=== PATIENT | female | born 1950 | race Caucasian/White ===

== ENCOUNTER 2024-11-30 14:38 | Inpatient (IN) | payer MEDICARE, OTHER ==
[~2024-11-30] VITALS: Ht 162.6 cm; Wt 83.9 kg
[~2024-11-30 14:38] MED LIST: ALBU0.63 NEB; ALBU18HF2 INH; DULO30CA2 PO; LOSA25TA27 PO; OMEP20TA20 PO; TRAM100T23 PO
[2024-11-30 20:04] LABS: ASPARTATE AMINOTRANSFERASE 13 U/L (15-37); CREATININE 1.0 mg/dL (0.6-1.3); SODIUM SERUM 148 mmol/L (136-145); TOTAL PROTEIN, SERUM 6.3 g/dL (6.4-8.2); UREA NITROGEN, BLOOD 22 mg/dL (7-18)
[2024-11-30 20:08] LABS: ETHANOL < 3 MG/DL (0-10)
[2024-11-30 20:17] LABS: PLATELET COUNT (AUTO) 156 K/uL (179-408); RED BLOOD CELL COUNT(AUTO) 4.10 MIL/uL (3.63-4.92); RED CELL DISTRIBUTION WIDTH 15.2 % (12.3-17.7); WHITE BLOOD COUNT (AUTO) 5.8 K/uL (3.8-11.8)
[2024-11-30 21:00] VITALS: BP 148/84
[2024-11-30 21:46] LABS: *BILIRUBIN,URIN NEGATIVE (NEGATIVE); *BLOOD, URINE NEGATIVE (NEGATIVE); *CLARITY,URINE CLEAR (CLEAR); *COLOR,URINE YELLOW (YELLOW); *KETONES,URINE NEGATIVE (NEGATIVE); *PROTEIN,URINE NEGATIVE (NEGATIVE); *UROBILINOGEN,URINE 0.2 E.U./dl (NORMAL); LEUKOCYTE ESTERASE ,URINE NEGATIVE (NEGATIVE); NITRITE, URINE NEGATIVE (NEGATIVE); UGLUCOSE NEGATIVE (NEGATIVE)
[2024-11-30 21:51] LABS: *AMPHETAMINE, URINE NEGATIVE (NEGATIVE); *BARBITURATE, URINE POSITIVE (NEGATIVE); *BENZODIAZEPINE, URINE NEGATIVE (NEGATIVE); *CANNABINOID, URINE NEGATIVE (NEGATIVE); *COCCAINE, URINE NEGATIVE (NEGATIVE); *OPIATE, URINE NEGATIVE (NEGATIVE); *PHENCYCLIDINE SCREEN,URINE NEGATIVE (NEGATIVE); FENTANYL, URINE NEGATIVE (NEGATIVE)
[2024-11-30] MEDS ORDERED: ACETAMINOPHEN 500 MG TABLET ONE (22:16)
[2024-11-30] MEDS: ACETAMINOPHEN 500 MG TABLET PO ONE (22:20)
[2024-12-01] MEDS ORDERED: TEMAZEPAM 7.5 MG CAPSULE PO PRN (00:15)
[2024-12-01] MEDS ORDERED: MAGNESIUM HYDROXIDE 30 ML LIQUID UDC PO PRN (00:15)
[2024-12-01] MEDS: BLOOD SUGAR DIAGNOSTIC 1 EACH STRIP VI ONE (00:15)
[2024-12-01] MEDS ORDERED: LORAZEPAM 1 MG TABLET PO PRN (00:15)
[2024-12-01] MEDS ORDERED: MAG HYDROX/AL HYDROX/SIMETH 30 ML LIQUID UDC PO PRN (00:15)
[2024-12-01] MEDS: ACETAMINOPHEN 325 MG TABLET PO PRN (00:37)
[2024-12-01] MEDS: TEMAZEPAM 7.5 MG CAPSULE PO PRN (00:37)
[2024-12-01 01:30] VITALS: BP 146/58; TEMP 98.1; O2SAT 96
[2024-12-01] MEDS ORDERED: BUSP5TAB3 PO (05:36)
[2024-12-01] MEDS ORDERED: ASPI81TA31 PO (05:36)
[2024-12-01] MEDS ORDERED: MELA5TAB20 PO (05:36)
[2024-12-01] MEDS ORDERED: TRAM50TA2 PO (05:36)
[2024-12-01] MEDS ORDERED: ALBU6.7H9 INH (05:36)
[2024-12-01] MEDS ORDERED: FAMO40TA7 PO (05:36)
[2024-12-01] MEDS ORDERED: ATOR40TA PO (05:36)
[2024-12-01] MEDS ORDERED: LOSA100T31 PO (05:36)
[2024-12-01] MEDS ORDERED: FURO20TA4 PO (05:36)
[2024-12-01] MEDS ORDERED: GABA-532 PO (05:36)
[2024-12-01] MEDS ORDERED: SERT50TA PO (05:36)
[2024-12-01] MEDS: PANTOPRAZOLE SODIUM 40 MG TABLET.DR PO SCH (07:10)
[2024-12-01 08:17] LABS: CREATININE 0.7 mg/dL (0.6-1.3); GLUCOSE FASTING 112 mg/dL (70-115); SODIUM SERUM 143 mmol/L (136-145); UREA NITROGEN, BLOOD 20 mg/dL (7-18)
[2024-12-01 08:20] LABS: PLATELET COUNT (AUTO) 141 K/uL (179-408); RED BLOOD CELL COUNT(AUTO) 3.79 MIL/uL (3.63-4.92); RED CELL DISTRIBUTION WIDTH 15.3 % (12.3-17.7); WHITE BLOOD COUNT (AUTO) 5.4 K/uL (3.8-11.8)
[2024-12-01] MEDS: LOSARTAN POTASSIUM 50 MG TABLET PO SCH (08:26)
[2024-12-01 08:43] VITALS: BP 139/51; TEMP 98.3; O2SAT 98
[2024-12-01] MEDS ORDERED: LOSARTAN POTASSIUM 25 MG TABLET PO SCH ×2 (09:00)
[2024-12-01] MEDS ORDERED: ALBUTEROL SULFATE 8 GM HFA.AER.AD INH SCH ×3 (09:00→11:45)
[2024-12-01] MEDS ORDERED: DULOXETINE 30 MG CAPSULE.DR PO SCH ×2 (09:00)
[2024-12-01] MEDS ORDERED: FLUT1BLS INH (10:37)
[2024-12-01] MEDS: SERTRALINE HCL 50 MG TABLET PO SCH (13:34)
[2024-12-01 16:20] VITALS: BP 143/65; TEMP 98.3; O2SAT 98
[2024-12-01] MEDS: GABAPENTIN 100 MG CAPSULE PO SCH (17:21)
[2024-12-01] MEDS: FAMOTIDINE 20 MG TABLET PO SCH (17:21)
[2024-12-01] MEDS: TRAMADOL HCL 50 MG TABLET PO PRN (19:02)
[2024-12-01 19:44] VITALS: BP 156/57; TEMP 97.8; O2SAT 96
[2024-12-01] MEDS ORDERED: ZINC OXIDE OINT 30 GM TUBE TOP PRN (20:00)
[2024-12-01] MEDS: MOMETASONE/FORMOTEROL 8.8 GM HFA.AER.AD IH SCH (20:46)
[2024-12-01] MEDS: LORAZEPAM 1 MG TABLET PO PRN (20:47)
[2024-12-01] MEDS: ATORVASTATIN 40 MG TABLET PO SCH (20:47)
[2024-12-02] MEDS ORDERED: LOSARTAN POTASSIUM 50 MG TABLET PO SCH (09:00)
[2024-12-02 09:33] VITALS: BP 135/58; TEMP 98; O2SAT 94
[2024-12-02] MEDS: FUROSEMIDE 20 MG TABLET PO SCH (10:25)
[2024-12-02] MEDS: ASPIRIN 81 MG TAB.CHEW PO SCH (10:26)
[2024-12-02 16:38] VITALS: BP 144/64; TEMP 97.9; O2SAT 98
[2024-12-02 20:00] VITALS: BP 147/71; TEMP 97.5; O2SAT 94
[2024-12-03 07:54] VITALS: BP 140/60; TEMP 98.2; O2SAT 96
[2024-12-03 15:07] VITALS: BP 129/61; TEMP 98; O2SAT 96
[2024-12-03 20:00] VITALS: BP 123/53; TEMP 98.1; O2SAT 96
[2024-12-03] MEDS: REMEDY ESSENTIAL ZINC PASTE 113 GM TP PRN (20:31)
[2024-12-03] MEDS: TEMAZEPAM 15 MG CAPSULE PO PRN (22:49)
[2024-12-04] MEDS: SERTRALINE HCL 100 MG TABLET PO SCH (08:18)
[2024-12-04 09:23] VITALS: BP 133/61; TEMP 98; O2SAT 98
[2024-12-04] MEDS: ENSURE ENLIVE (VAN) 240 ML LIQUID PO SCH (09:28)
[2024-12-04 15:01] VITALS: BP 134/59; TEMP 98; O2SAT 96
[2024-12-04 19:45] VITALS: BP 120/61; TEMP 97.8; O2SAT 94
[2024-12-05 07:38] VITALS: BP 133/66; TEMP 98; O2SAT 94
[2024-12-05 15:41] VITALS: BP 114/51; TEMP 98; O2SAT 96
[2024-12-05 20:00] VITALS: BP 120/60; TEMP 98; O2SAT 99
[2024-12-06] VITALS (7 sets, daily range): BP systolic 118–135; BP diastolic 44–59; TEMP 98; O2SAT 94–99
[2024-12-06] MEDS: ALBUTEROL SULFATE 1.25 MG/3 ML NEBU NEB PRN (07:58)
[2024-12-07 08:49] VITALS: BP 144/77; TEMP 98; O2SAT 99
[2024-12-07] MEDS: PNEUMOCOCCAL 23-VAL P-SAC VAC 0.5 ML VIAL IM ONE (13:08)
[2024-12-07] MEDS: SERTRALINE HCL 100 MG TABLET PO SCH (13:10)
[2024-12-07 16:17] VITALS: BP 118/44; TEMP 98; O2SAT 99
[2024-12-07 20:00] VITALS: BP 109/55; TEMP 98; O2SAT 94
[2024-12-08 08:10] VITALS: BP 128/48; TEMP 98; O2SAT 99
[2024-12-08 16:27] VITALS: BP 130/61; TEMP 98; O2SAT 99
[2024-12-08 19:50] VITALS: O2SAT 94
[2024-12-08 19:58] VITALS: BP 121/50; TEMP 98.1; O2SAT 94
[2024-12-08 20:00] VITALS: O2SAT 98
[2024-12-09 08:24] VITALS: BP 136/69; TEMP 97.8; O2SAT 97
[2024-12-09 17:26] VITALS: BP 115/63; TEMP 98.2; O2SAT 94
[2024-12-09 19:00] VITALS: O2SAT 94
[2024-12-09 19:11] VITALS: O2SAT 98
[2024-12-09 19:15] VITALS: O2SAT 98
[2024-12-09 19:37] VITALS: BP 130/76; TEMP 98.1; O2SAT 95
[2024-12-10] VITALS (11 sets, daily range): BP systolic 99–131; BP diastolic 35–72; TEMP 98.7–99.1; O2SAT 90–99
[2024-12-10] MEDS: FAMOTIDINE 20 MG TABLET PO SCH (17:44)
[2024-12-10] MEDS: IPRATROPIUM BROMIDE 0.5 MG/2.5 ML NEBU NEB PRN (20:47)
[2024-12-10] MEDS: ALBUTEROL SULFATE 2.5 MG/ 0.5 ML NEBU NEB PRN (20:48)
[2024-12-11] VITALS (9 sets, daily range): BP systolic 101–138; BP diastolic 37–61; TEMP 97.7–98.2; O2SAT 92–99
[2024-12-11] MEDS: FUROSEMIDE 20 MG TABLET PO SCH (08:49)
[2024-12-11] MEDS ORDERED: FUROSEMIDE 20 MG TABLET PO SCH (09:00)
[2024-12-11] MEDS ORDERED: FUROSEMIDE 40 MG TABLET PO SCH ×2 (09:00)
[2024-12-11] MEDS: DOXYCYCLINE HYCLATE 100 MG TABLET PO SCH (10:41)
[2024-12-12] VITALS (13 sets, daily range): BP systolic 90–102; BP diastolic 44–50; TEMP 98–98.4; O2SAT 92–100
[2024-12-12] MEDS: SERTRALINE HCL 100 MG TABLET PO SCH (08:32)
[2024-12-13] VITALS (9 sets, daily range): BP systolic 114–119; BP diastolic 55–61; TEMP 97.7–98; O2SAT 90–96
[2024-12-14] VITALS (10 sets, daily range): BP systolic 109–111; BP diastolic 40–44; TEMP 98.1–98.3; O2SAT 90–96
[2024-12-14 16:02] LABS: PLATELET COUNT (AUTO) 188 K/uL (179-408); RED BLOOD CELL COUNT(AUTO) 3.74 MIL/uL (3.63-4.92); RED CELL DISTRIBUTION WIDTH 15.5 % (12.3-17.7); WHITE BLOOD COUNT (AUTO) 4.7 K/uL (3.8-11.8)
[2024-12-14 16:08] LABS: CREATININE 1.0 mg/dL (0.6-1.3); SODIUM SERUM 140 mmol/L (136-145); UREA NITROGEN, BLOOD 24 mg/dL (7-18)
[2024-12-14] MEDS ORDERED: IPRATROPIUM BROMIDE 0.5 MG/2.5 ML NEBU NEB SCH (19:30)
[2024-12-14] MEDS ORDERED: ALBUTEROL SULFATE 2.5 MG/3 ML NEBU NEB SCH (19:30)
[2024-12-15] MEDS ORDERED: MOME13HF2 INH (10:55)
[2024-12-15] MEDS ORDERED: MAGN400O6 PO (10:55)
[2024-12-15] MEDS ORDERED: PANT40TA49 PO (10:56)
[2024-12-15] MEDS ORDERED: SERT50TA PO (10:57)
[2024-12-15] MEDS ORDERED: TEMA15CA PO (10:57)
[2024-12-15] MEDS ORDERED: TRAM50TA2 PO (10:58)
[2024-12-15] MEDS ORDERED: z-guard TOP (10:59)
[2024-12-15] MEDS ORDERED: IPRA3AMP23 IH (11:00)
[2024-12-15] MEDS ORDERED: LORA-259 PO (11:02)
[2024-12-15] MEDS ORDERED: MAG355OR18 PO (11:03)
[2024-12-15] MEDS ORDERED: ACET325T53 PO (11:04)
[2024-12-15] MEDS ORDERED: ALBU2.5V38 NEB (11:05)
[2024-12-15] MEDS ORDERED: DOXY100C5 PO (11:06)
[2024-12-15] MEDS ORDERED: BUSP5TAB3 PO (11:08)
[2024-12-15] MEDS ORDERED: PRED20TA PO (11:08)
== END 2024-12-14 18:04 | disposition short-term general hospital (02) | DRG 885 ==
LOC: ER 14:38 → GPS 15:00
PROVIDERS: ADMIT Psychiatry & Neurology Psychiatry; ATTEND Student in an Organized Health Care Education/Training Program
DX: F33.9 Major depressive disorder, recurrent, unspecified (principal); J44.1 Chronic obstructive pulmonary disease with (acute) exacerbation; R45.851 Suicidal ideations; I69.354 Hemiplegia and hemiparesis following cerebral infarction affecting left non-dominant side; H54.62 Unqualified visual loss, left eye, normal vision right eye; I69.328 Other speech and language deficits following cerebral infarction; H26.9 Unspecified cataract; H91.93 Unspecified hearing loss, bilateral; Z87.891 Personal history of nicotine dependence; Z86.718 Personal history of other venous thrombosis and embolism; E66.9 Obesity, unspecified; Z68.31 Body mass index [BMI] 31.0-31.9, adult; I10 Essential (primary) hypertension; I25.10 Atherosclerotic heart disease of native coronary artery without angina pectoris; Z88.0 Allergy status to penicillin; Z86.16 Personal history of COVID-19; Z82.3 Family history of stroke; Z79.899 Other long term (current) drug therapy; Z95.5 Presence of coronary angioplasty implant and graft; R09.02 Hypoxemia; Z79.82 Long term (current) use of aspirin
CPT/HCPCS: 36415; 71045; 83735; 84100; 84443; 84484; 85025; 85730; 87086; 90732; 93005; 94640; 94664; 94760; A4663; A9150; G0480; J3535; J3590; J7512

== ENCOUNTER 2024-12-14 18:02 | Inpatient (IN) | payer MEDICARE, OTHER ==
[~2024-12-14] VITALS: Ht 152.4 cm; Wt 84.1 kg
[~2024-12-14 18:02] MED LIST changes: -ALBU0.63 NEB; -ALBU18HF2 INH; +ALBU6.7H9 INH; +ASPI81TA31 PO; +ATOR40TA PO; -DULO30CA2 PO; +FAMO40TA7 PO; +FLUT1BLS INH; +FURO20TA4 PO; +GABA-532 PO; +LOSA100T31 PO; -LOSA25TA27 PO
[2024-12-14] MEDS ORDERED: REMEDY ESSENTIAL ZINC PASTE 113 GM TP PRN (18:15)
[2024-12-14] MEDS ORDERED: MAGNESIUM HYDROXIDE 30 ML LIQUID UDC PO PRN (18:15)
[2024-12-14] MEDS ORDERED: ONDANSETRON 4 MG/2 ML VIAL IV PRN (18:15)
[2024-12-14 18:39] VITALS: BP 109/50; TEMP 98.9; O2SAT 92
[2024-12-14 19:47] VITALS: BP 117/57; TEMP 98.2; O2SAT 91
[2024-12-14] MEDS: ALBUTEROL SULFATE 2.5 MG/ 0.5 ML NEBU NEB PRN (19:57)
[2024-12-14] MEDS: IPRATROPIUM BROMIDE 0.5 MG/2.5 ML NEBU NEB PRN (19:57)
[2024-12-14] MEDS: ZOLPIDEM 5 MG TABLET PO PRN (21:51)
[2024-12-14] MEDS: ACETAMINOPHEN 325 MG TABLET PO PRN (21:51)
[2024-12-14 23:15] VITALS: O2SAT 95; O2SAT 98
[2024-12-15] VITALS (11 sets, daily range): BP systolic 117–136; BP diastolic 44–64; TEMP 97.3–98.8; O2SAT 88–98
[2024-12-15] MEDS ORDERED: DOXYCYCLINE HYCLATE 100 MG INJ IV ONE (02:16)
[2024-12-15 07:40] LABS: PLATELET COUNT (AUTO) 192 K/uL (179-408); RED BLOOD CELL COUNT(AUTO) 3.88 MIL/uL (3.63-4.92); RED CELL DISTRIBUTION WIDTH 15.5 % (12.3-17.7); WHITE BLOOD COUNT (AUTO) 4.6 K/uL (3.8-11.8)
[2024-12-15 07:55] LABS: CREATININE 0.8 mg/dL (0.6-1.3); SODIUM SERUM 138 mmol/L (136-145); UREA NITROGEN, BLOOD 23 mg/dL (7-18)
[2024-12-15] MEDS: FUROSEMIDE 20 MG TABLET PO SCH (08:37)
[2024-12-15] MEDS: ASPIRIN 81 MG TAB.CHEW PO SCH (08:37)
[2024-12-15] MEDS ORDERED: TRAMADOL HCL 50 MG PO SCH (09:00)
[2024-12-15] MEDS: DOXYCYCLINE HYCLATE IV 100 MG in IV DEXTROSE 5% 100 ML IV SCH ×2 (10:24)
[2024-12-15] MEDS: PANTOPRAZOLE SODIUM 40 MG TABLET.DR PO SCH (10:26)
[2024-12-15] MEDS: LOSARTAN POTASSIUM 50 MG TABLET PO SCH (10:26)
[2024-12-15] MEDS: GABAPENTIN 100 MG CAPSULE PO SCH (10:26)
[2024-12-15] MEDS: GUAIFENESIN/CODEINE 5 ML LIQUID UDC PO PRN (10:27)
[2024-12-15] MEDS: ENOXAPARIN SODIUM 40 MG/0.4 ML DISP.SYRIN SQ SCH (10:28)
[2024-12-15] MEDS ORDERED: MAGN400O6 PO (10:55)
[2024-12-15] MEDS ORDERED: MOME13HF2 INH (10:55)
[2024-12-15] MEDS ORDERED: PANT40TA49 PO (10:56)
[2024-12-15] MEDS ORDERED: TEMA15CA PO (10:57)
[2024-12-15] MEDS ORDERED: SERT50TA PO (10:57)
[2024-12-15] MEDS ORDERED: TRAM50TA2 PO (10:58)
[2024-12-15] MEDS ORDERED: z-guard TOP (10:59)
[2024-12-15] MEDS ORDERED: IPRA3AMP23 IH (11:00)
[2024-12-15] MEDS ORDERED: LORA-259 PO (11:02)
[2024-12-15] MEDS ORDERED: MAG355OR18 PO (11:03)
[2024-12-15] MEDS ORDERED: ACET325T53 PO (11:04)
[2024-12-15] MEDS ORDERED: ALBU2.5V38 NEB (11:05)
[2024-12-15] MEDS ORDERED: DOXY100C5 PO (11:06)
[2024-12-15] MEDS ORDERED: BUSP5TAB3 PO (11:08)
[2024-12-15] MEDS ORDERED: PRED20TA PO (11:08)
[2024-12-15] MEDS: SERTRALINE HCL 100 MG TABLET PO SCH (12:35)
[2024-12-15] MEDS: ATORVASTATIN 40 MG TABLET PO SCH (18:07)
[2024-12-16] VITALS (8 sets, daily range): BP systolic 114–137; BP diastolic 45–76; TEMP 97.9–98.6; O2SAT 90–98
[2024-12-16] MEDS ORDERED: TRAMADOL HCL 50 MG TABLET PO PRN (07:45)
[2024-12-16] MEDS ORDERED: PANTOPRAZOLE SODIUM 40 MG TABLET.DR PO SCH (09:00)
[2024-12-16] MEDS ORDERED: SERTRALINE HCL 50 MG TABLET PO SCH (09:00)
[2024-12-16] MEDS: DOXYCYCLINE HYCLATE 100 MG TABLET PO SCH (09:50)
[2024-12-16] MEDS: MOMETASONE/FORMOTEROL 8.8 GM HFA.AER.AD INH SCH (10:00)
[2024-12-16] MEDS: TEMAZEPAM 15 MG CAPSULE PO PRN (22:35)
[2024-12-17] VITALS (8 sets, daily range): BP systolic 106–126; BP diastolic 45–55; TEMP 97.7–98.4; O2SAT 93–98
[2024-12-17 06:44] LABS: PLATELET COUNT (AUTO) 215 K/uL (179-408); RED BLOOD CELL COUNT(AUTO) 4.01 MIL/uL (3.63-4.92); RED CELL DISTRIBUTION WIDTH 15.8 % (12.3-17.7); WHITE BLOOD COUNT (AUTO) 9.3 K/uL (3.8-11.8)
[2024-12-17 06:56] LABS: CREATININE 1.1 mg/dL (0.6-1.3); SODIUM SERUM 140 mmol/L (136-145); UREA NITROGEN, BLOOD 41 mg/dL (7-18)
[2024-12-18 02:45] VITALS: O2SAT 93
[2024-12-18 02:55] VITALS: O2SAT 97
[2024-12-18 06:11] VITALS: BP 124/53; TEMP 97.6; O2SAT 94
[2024-12-18 11:04] VITALS: BP 107/47; TEMP 98.2; O2SAT 93
[2024-12-18 15:12] VITALS: BP 108/41; TEMP 97.6; O2SAT 95
== END 2024-12-18 16:10 | disposition home health service (06) | DRG 190 ==
LOC: TELE3 18:02 → MEDSURG3 12-15 09:30
PROVIDERS: ADMIT Internal Medicine; ATTEND Internal Medicine
DX: J44.1 Chronic obstructive pulmonary disease with (acute) exacerbation (principal); J15.9 Unspecified bacterial pneumonia; J44.0 Chronic obstructive pulmonary disease with (acute) lower respiratory infection; J96.01 Acute respiratory failure with hypoxia; J45.901 Unspecified asthma with (acute) exacerbation; R45.851 Suicidal ideations; F33.9 Major depressive disorder, recurrent, unspecified; I69.354 Hemiplegia and hemiparesis following cerebral infarction affecting left non-dominant side; H26.9 Unspecified cataract; H54.62 Unqualified visual loss, left eye, normal vision right eye; Z86.718 Personal history of other venous thrombosis and embolism; Z88.0 Allergy status to penicillin; E66.9 Obesity, unspecified; Z68.36 Body mass index [BMI] 36.0-36.9, adult; I10 Essential (primary) hypertension; I25.10 Atherosclerotic heart disease of native coronary artery without angina pectoris; Z95.5 Presence of coronary angioplasty implant and graft
CPT/HCPCS: 36415; 71045; 83735; 84100; 85025; 93005; 93307; 94640; 94760; A4663; G0378; J1650; J2919; J3490; J3590